=== PATIENT | male | born 1975 | race Asian ===

== ENCOUNTER → 2024-01-01 06:25 | Day surgery (SDC) | payer BC, SELFPAY | LOC: GI 06:25 | PROVIDERS: ATTENDING PHYSICIAN Internal Medicine Gastroenterology | DX: Z12.11 Encounter for screening for malignant neoplasm of colon (principal); K64.8 Other hemorrhoids; D12.8 Benign neoplasm of rectum | CPT/HCPCS: 45385; 88305 ==